=== PATIENT | female | born 1990 | race African-American/Black ===

== ENCOUNTER 2016-04-24 17:47 | Emergency (ER) | payer SELFPAY ==
--- NOTE | 2016-04-24 18:05 | ED Physician Documentation ---
General Adult - HISTORIAN Historian: patient - HPI Stated Complaint: abd pain, n/v/d Chief Complaint: General Adult Onset: days ago (1) Timing: still present Severity: moderate Further Comments: yes (Pt is a 25 yo female with n/v/d x 1 day. Pt had >10 episodes vomiting today. No fever. No blood with water bm's. No fever.) - ROS CONST: other (malaise) EYES/ENT: none CVS/RESP: none GI/: vomiting, nausea, diarrhea MS/SKIN/LYMPH: none - PAST HX Past History: none - SOCIAL HX Smoking History: non-smoker - FAMILY HX Family History: No - VITAL SIGNS Vital Signs: Vital Signs Temp Pulse Resp BP Pulse Ox 98.0 F 83 18 122/64 99 04/24/16 17:56 04/24/16 17:56 04/24/16 17:56 04/24/16 17:56 04/24/16 17:56 - REVIEWED ASSESSMENTS Nursing Assessment Reviewed: Yes Vitals Reviewed: Yes <Nikos Roy - Last Filed: 04/24/16 19:07> - VITAL SIGNS Vital Signs: Vital Signs Temp Pulse Resp BP Pulse Ox 98.0 F 83 18 122/64 99 04/24/16 17:56 04/24/16 17:56 04/24/16 17:56 04/24/16 17:56 04/24/16 17:56 <BRENDA CHARLES - Last Filed: 04/24/16 19:59> - PAST HX Allergies/Adverse Reactions: Allergies Allergy/AdvReac Type Severity Reaction Status Date / Time No Known Allergies Allergy Verified 04/24/16 18:02 Home Medications: Ambulatory Orders Medication Instructions Recorded NK [NK] 04/24/16 Progress - Progress Progress: NS 1 L IVF Zofran 4 mg IV Care transferred to Brenda Charles at 1900. <Nikos Roy - Last Filed: 04/24/16 19:07> ED Results Lab/Radiology - Lab Results Lab Results: Lab Results 04/24/16 04/24/16 18:30 18:30 WBC 4.60 K/ul K/ul (4.00-12.00) RBC 5.57 M/ul H M/ul (3.90-5.20) Hgb 12.6 g/dL g/dL (12.0-16.0) Hct 40.6 % % (34.5-46.5) MCV 73.0 fl L fl (80.0-100.0) MCH 22.5 pg L pg (28.0-34.0) MCHC 30.9 g/dL g/dL (30.0-36.0) RDW 14.1 % % (11.3-14.3) Plt Count 239 K/mm3 K/mm3 (130-400) Neut % (Auto) 82.6 % H % (39.0-79.0) Lymph % (Auto) 11.1 % L % (16.0-50.0) Power % (Auto) 2.7 % % (0.0-11.0) Eos % (Auto) 2.3 % % (0.0-6.8) Baso % (Auto) 0.2 (0.0-1.5) Neut # 3.8 # k/uL # k/uL (1.4-7.7) Lymph # 0.5 # k/uL L # k/uL (0.6-4.0) Power # 0.1 # k/uL # k/uL (0.0-0.9) Eos # 0.1 # k/uL # k/uL (0.0-0.6) Baso # 0.0 # k/uL # k/uL (0.0-0.5) Reactive Lymphs % 1.2 % % (0.0-5.0) Reactive Lymphs # 0.0 # k/uL # k/uL (0.0-0.8) Sodium 138 mmol/L mmol/L (136-145) Potassium 3.3 mmol/L L mmol/L (3.5-5.0) Chloride 101 mmol/L mmol/L (98-110) Carbon Dioxide 33 mmol/L H mmol/L (20-32) BUN 14 mg/dL mg/dL (10-26) Creatinine 0.6 mg/dL mg/dL (0.4-1.5) Estimated Creat Clear 121 Est GFR ( Amer) > 60 (60 - ) Est GFR (Non-Af Amer) > 60 (60 - ) Glucose 97 mg/dL mg/dL (70-99) Calcium 9.7 mg/dL mg/dL (8.5-10.5) Total Bilirubin 0.7 mg/dL mg/dL (0.2-1.2) AST 24 U/L U/L (0-41) ALT 13 U/L U/L (0-45) Alkaline Phosphatase 61 U/L U/L (46-116) Total Protein 8.0 g/dL g/dL (6.0-8.5) Albumin 4.7 g/dL g/dL (3.0-5.5) - Orders Orders: ED Orders Category Date Time Status CBC/PLATELET/DIFF Routine Lab 04/24/16 18:30 Completed CMP Routine Lab 04/24/16 18:30 Completed UA [URINALYSIS] Routine Lab 04/24/16 Ordered 0.9 % Sodium Chloride [Normal Saline] 1,000 ml Med 04/24/16 18:09 Discontinued IV Q1H 0.9 % Sodium Chloride [Normal Saline] 1,000 ml Med 04/24/16 19:12 Active IV Q1H Ketorolac Tromethamine [Toradol] Med 04/24/16 19:12 Discontinued 30 mg .ROUTE .STK-MED ONE Ketorolac Tromethamine [Toradol] Med 04/24/16 19:11 Discontinued 30 mg IVP NOW ONE Ondansetron HCl/Pf [Zofran 4 mg/2 ml] Med 04/24/16 18:08 Discontinued 4 mg IVP NOW ONE EKG WITH COMPARISON Stat Ther 04/24/16 Ordered <BRENDA CHARLES - Last Filed: 04/24/16 19:59> General Adult Physical Exam - PHYSICAL EXAM GENERAL APPEARANCE: mild distress EENT: eye inspection normal, pharynx normal NECK: normal inspection, supple RESPIRATORY: no resp distress, chest non-tender, breath sounds normal CVS: heart sounds normal, other (irregular c/w PVC's.) ABDOMEN: soft, no organomegaly, tenderness (mild-moderate diffuse abd tenderness ), decreased BS BACK: normal inspection, no CVA tenderness SKIN: warm/dry, normal color EXTREMITIES: non-tender, normal range of motion, no evidence of injury NEURO: oriented X3, motor nml, sensation nml <Nikos Roy - Last Filed: 04/24/16 19:07> Discharge <Nikos Roy - Last Filed: 04/24/16 19:07> Decision to Admit: NO Decision Time: 19:57 <BRENDA CHARLES - Last Filed: 04/24/16 19:59> Clincal Impression: Nausea and vomiting Additional Instructions: Advance your diet very slowly. If you vomit, wait an hour before you try sips of liquids. Return to the ER if you are unable to urinate for 10-12 hours. Home Medications: Ambulatory Orders NK [NK] 04/24/16 Condition: Good Disposition: 01 HOME, SELF-CARE
[2016-04-24] MEDS ORDERED: ONDANSETRON HCL/PF 4 MG/ 2ML VIAL IVP ONE (18:08)
[2016-04-24] MEDS ORDERED: 0.9 % SODIUM CHLORIDE 1,000 ML IV ONE ×2 (18:09→19:12)
[2016-04-24 18:37] LABS: BASOPHILS % 0.2 (0.0-1.5); EOSINOPHILS % 2.3 % (0.0-6.8); LYMPHOCYTES # 0.5 # k/uL (0.6-4.0); MEAN CORPUSCULAR HEMOGLOBIN 22.5 pg (28.0-34.0); MONOCYTES # 0.1 # k/uL (0.0-0.9); MONOCYTES % 2.7 % (0.0-11.0); NEUTROPHILS # 3.8 # k/uL (1.4-7.7)
[2016-04-24 18:54] LABS: eGFR (African) > 60; eGFR (Non-African) > 60
[2016-04-24] MEDS ORDERED: KETOROLAC TROMETHAMINE 30 MG/1ML VIAL IVP ONE (19:11)
[2016-04-24] MEDS ORDERED: KETOROLAC TROMETHAMINE 30 MG/1ML VIAL ONE (19:12)
[2016-04-24] MEDS ORDERED: ONDANSETRON HCL 4 MG TAB.RAPDIS PO ONE (20:00)
[2016-04-24 20:44] VITALS: BP 120/61
== END 2016-04-24 20:17 | disposition home or self-care (01) ==
LOC: ED 17:47
DX: R11.2 Nausea with vomiting, unspecified (principal)
CPT/HCPCS: 80053; 85025; J1885; J2405; J7030; 96374; 96375; 99283; 99284; S1016

== ENCOUNTER 2017-09-05 00:55 | Emergency (ER) | payer SELFPAY ==
[2017-09-05] MEDS: KETOROLAC TROMETHAMINE 60 MG/2 ML VIAL IM ONE (01:15)
[2017-09-05 01:36] LABS: BASOPHILS % 0.3 (0.0-1.5); EOSINOPHILS % 2.3 % (0.0-6.8); MEAN CORPUSCULAR HEMOGLOBIN 21.9 pg (28.0-34.0); MEAN CORPUSCULAR VOLUME 72.7 fl (80.0-100.0); MONOCYTES % 3.2 % (0.0-11.0); NEUTROPHILS # 1.5 # k/uL (1.4-7.7)
[2017-09-05 01:47] LABS: eGFR (African) > 60; eGFR (Non-African) > 60
--- NOTE | 2017-09-05 01:56 | ED Physician Documentation ---
General Adult - HPI Stated Complaint: L jaw pain Chief Complaint: General Adult Onset: days ago (1) Timing: still present Severity: moderate Further Comments: yes (Pt is a 27 yo female who fell yesterday and struck the L side of her face on a clothes dryer. Pt was lightheaded when she fell. Pt c/o jaw pain, although she has FROM in her jaw. Jaw has been sore in the area of TMJ.) - ROS CONST: other (lightheaded yesterday) EYES/ENT: other (sore jaw s/p fall) CVS/RESP: none GI/: none MS/SKIN/LYMPH: other (jaw soreness) - PAST HX Past History: none Allergies/Adverse Reactions: Allergies Allergy/AdvReac Type Severity Reaction Status Date / Time No Known Allergies Allergy Verified 09/05/17 01:15 Home Medications: Ambulatory Orders Medication Instructions Recorded NK [NK] 04/24/16 - SOCIAL HX Smoking History: non-smoker - FAMILY HX Family History: No - VITAL SIGNS Vital Signs: Vital Signs Temp Pulse Resp BP Pulse Ox 98.2 F 67 16 103/63 98 09/05/17 00:55 09/05/17 00:55 09/05/17 00:55 09/05/17 00:55 09/05/17 00:55 - REVIEWED ASSESSMENTS Nursing Assessment Reviewed: Yes Vitals Reviewed: Yes Progress - Progress Progress: Toradol 60 mg IM improved Rx Keflex 500 mg po tid x 5 days, 1st dose in ER for possible early lip abscess. establish with pcp and f/u re: microcytic anemia (handout given). ED Results Lab/Radiology - Lab Results Lab Results: Lab Results 09/05/17 09/05/17 01:32 01:32 WBC 4.00 K/ul K/ul (4.00-12.00) RBC 4.95 M/ul M/ul (3.90-5.20) Hgb 10.9 g/dL L g/dL (12.0-16.0) Hct 36.0 % % (34.5-46.5) MCV 72.7 fl L fl (80.0-100.0) MCH 21.9 pg L pg (28.0-34.0) MCHC 30.2 g/dL g/dL (30.0-36.0) RDW 14.2 % % (11.3-14.3) Plt Count 194 K/mm3 K/mm3 (130-400) Neut % (Auto) 37.6 % L % (39.0-79.0) Lymph % (Auto) 55.0 % H % (16.0-50.0) [place] % (Auto) 3.2 % % (0.0-11.0) Eos % (Auto) 2.3 % % (0.0-6.8) Baso % (Auto) 0.3 (0.0-1.5) Neut # (Auto) 1.5 # k/uL # k/uL (1.4-7.7) Lymph # (Auto) 2.2 # k/uL # k/uL (0.6-4.0) [place] # (Auto) 0.1 # k/uL # k/uL (0.0-0.9) Eos # (Auto) 0.1 # k/uL # k/uL (0.0-0.6) Baso # (Auto) 0.0 # k/uL # k/uL (0.0-0.5) Reactive Lymphs % 1.6 % % (0.0-5.0) Reactive Lymphs # 0.1 # k/uL # k/uL (0.0-0.8) Sodium 138 mmol/L mmol/L (136-145) Potassium 3.3 mmol/L L mmol/L (3.5-5.1) Chloride 106 mmol/L mmol/L (98-107) Carbon Dioxide 26 mmol/L mmol/L (22-30) BUN 11 mg/dL mg/dL (7-17) Creatinine 0.60 mg/dL mg/dL (0.52-1.04) Estimated Creat Clear 113 Est GFR ( Amer) > 60 (60 - ) Est GFR (Non-Af Amer) > 60 (60 - ) Glucose 95 mg/dL mg/dL (74-106) Calcium 8.4 mg/dL mg/dL (8.4-10.2) Total Bilirubin < 0.1 mg/dL L mg/dL (0.2-1.3) AST 15 U/L U/L (15-46) ALT 15 U/L U/L (13-69) Alkaline Phosphatase 44 U/L U/L (38-126) Total Protein 6.6 g/dL g/dL (6.3-8.2) Albumin 3.7 g/dL g/dL (3.5-5.0) - Orders Orders: ED Orders Category Date Time Status CBC/PLATELET/DIFF Routine Lab 09/05/17 01:32 Completed CMP Routine Lab 09/05/17 01:32 Completed UA [URINALYSIS] Routine Lab 09/05/17 Ordered Ketorolac Tromethamine [Toradol] Med 09/05/17 01:13 Discontinued 60 mg IM NOW ONE General Adult Physical Exam - PHYSICAL EXAM GENERAL APPEARANCE: mild distress EENT: pharynx normal, other (TMJ with FROM; good dentition; small abrasion inside lower lip, possible early abscess formation) NECK: normal inspection, supple RESPIRATORY: no resp distress, chest non-tender, breath sounds normal CVS: reg rate & rhythm, heart sounds normal BACK: normal inspection, no CVA tenderness SKIN: warm/dry, normal color EXTREMITIES: non-tender, normal range of motion, no edema NEURO: oriented X3, CN's nml as tested, motor nml, sensation nml Discharge Clincal Impression: musculoskeletal jaw pain, microcytic anemia, possible early lip abscess Referrals: Primary Doctor,No [Primary Care Provider] - Condition: Good Disposition: 01 HOME, SELF-CARE Decision to Admit: NO Decision Time: 02:20
[2017-09-05] MEDS: CEPHALEXIN 250 MG CAPSULE PO ONE (02:19)
[2017-09-05 03:04] VITALS: BP 105/64
[2017-09-05 08:44] LABS: APPEARANCE,URINE CLEAR (CLEAR); COLOR,URINE YELLOW (YELLOW); OCCULT BLOOD,URINE 2+ (NEGATIVE); PH URINE 6.5 (5.0 - 8.0); UROBILINOGEN URINE 0.2 Eu (0.2-1.0)
== END 2017-09-05 02:42 | disposition home or self-care (01) ==
LOC: ED 00:55
DX: R68.84 Jaw pain (principal); D50.9 Iron deficiency anemia, unspecified
CPT/HCPCS: 80053; 81002; 85025; J1885; 96372; 99284

== ENCOUNTER 2018-05-01 10:45 | Emergency (ER) | payer OTHER ==
[2018-05-01] MEDS ORDERED: ONDANSETRON HCL/PF 4 MG/ 2ML VIAL IVP ONE (11:09)
[2018-05-01] MEDS ORDERED: 0.9 % SODIUM CHLORIDE 1,000 ML IV ONE (11:22)
[2018-05-01 11:27] LABS: BASOPHILS % 0.2 (0.0-1.5); EOSINOPHILS % 1.4 % (0.0-6.8); MEAN CORPUSCULAR HEMOGLOBIN 21.9 pg (28.0-34.0); MONOCYTES % 6.3 % (0.0-11.0); NEUTROPHILS # 1.7 # k/uL (1.4-7.7)
--- NOTE | 2018-05-01 11:31 | ED Physician Documentation ---
Abdominal Pain - HISTORIAN Historian: patient - HPI Stated Complaint: abd pain/n/v Chief Complaint: Abdominal Pain Additonal Information: Patient presents to ED with a 3 day history of nausea/vomiting/diarrhea and cramping abdominal pain. She reports sick contacts with similar symptoms. Denies fever. Onset: days ago (3) Duration: waxing, waning Timing: still present Context: denies: out of country travel, bad food Severity: moderate Quality: aching, cramping Associated Symptoms: nausea, vomiting, diarrhea. denies: fever, chills Exacerbated by: food Relieved by: supine, remaining still - ROS CONST: no problems GI/: dark urine. denies: constipation, black stools, bloody stools CVS/RESP: denies: shortness of breath EYES/ENT: denies: problems with vision MS/SKIN/LYMPH: denies: rash NEURO/PSYCH: denies: headache, dizziness - SOCIAL HX Smoking History: non-smoker Alcohol Use: none Drug Use: none - FAMILY HX Family History: none - PAST HX Past History: none Ischemic Bowel Risk Factors: none Other History: none Surgeries/Procedures: none Home Medications: Ambulatory Orders Medication Instructions Recorded Ondansetron HCl Rapdis [Zofran Odt] 4 mg PO Q8 PRN #30 tab 05/01/18 Allergies/Adverse Reactions: Allergies Allergy/AdvReac Type Severity Reaction Status Date / Time No Known Allergies Allergy Verified 05/01/18 11:01 - VITAL SIGNS Vital Signs: Vital Signs Temp Pulse Resp BP Pulse Ox 97.3 F L 72 16 110/64 100 05/01/18 10:56 05/01/18 10:56 05/01/18 10:56 05/01/18 10:56 05/01/18 10:56 - REVIEWED ASSESSMENTS Nursing Assessment Reviewed: Yes Vitals Reviewed: Yes ED Results Lab/Radiology - Lab Results Lab Results: Lab Results 05/01/18 05/01/18 Unknown Unknown WBC 2.90 K/ul L K/ul (4.00-12.00) RBC 5.74 M/ul H M/ul (3.90-5.20) Hgb 12.6 g/dL g/dL (12.0-16.0) Hct 39.7 % % (34.5-46.5) MCV 69.0 fl L fl (80.0-100.0) MCH 21.9 pg L pg (28.0-34.0) MCHC 31.6 g/dL g/dL (30.0-36.0) RDW 18.0 % H % (11.3-14.3) Plt Count 241 K/mm3 K/mm3 (130-400) Neut % (Auto) 56.9 % % (39.0-79.0) Lymph % (Auto) 35.2 % % (16.0-50.0) [place] % (Auto) 6.3 % % (0.0-11.0) Eos % (Auto) 1.4 % % (0.0-6.8) Baso % (Auto) 0.2 (0.0-1.5) Neut # (Auto) 1.7 # k/uL # k/uL (1.4-7.7) Lymph # (Auto) 1.0 # k/uL # k/uL (0.6-4.0) [place] # (Auto) 0.2 # k/uL # k/uL (0.0-0.9) Eos # (Auto) 0.0 # k/uL # k/uL (0.0-0.6) Baso # (Auto) 0.0 # k/uL # k/uL (0.0-0.5) Sodium 140 mmol/L mmol/L (136-145) Potassium 3.9 mmol/L mmol/L (3.5-5.1) Chloride 104 mmol/L mmol/L (98-107) Carbon Dioxide 25 mmol/L mmol/L (22-30) BUN 11 mg/dL mg/dL (7-17) Creatinine 0.60 mg/dL mg/dL (0.52-1.04) Estimated Creat Clear 113 Est GFR ( Amer) > 60 (60 - ) Est GFR (Non-Af Amer) > 60 (60 - ) Glucose 84 mg/dL mg/dL (74-106) Calcium 8.9 mg/dL mg/dL (8.4-10.2) Total Bilirubin 0.7 mg/dL mg/dL (0.2-1.3) AST 30 U/L U/L (15-46) ALT 21 U/L U/L (13-69) Alkaline Phosphatase 56 U/L U/L (38-126) Total Protein 8.1 g/dL g/dL (6.3-8.2) Albumin 4.9 g/dL g/dL (3.5-5.0) - Orders Orders: ED Orders Category Date Time Status Place IV Lock 1T Care 05/01/18 11:09 Active CBC/PLATELET/DIFF Routine Lab 05/01/18 Completed CMP Routine Lab 05/01/18 Completed 0.9 % Sodium Chloride [Normal Saline] 1,000 ml Med 05/01/18 11:22 Discontinued IV Q1H Ketorolac Tromethamine [Toradol] Med 05/01/18 12:17 Discontinued 30 mg IVP NOW ONE Ondansetron HCl/Pf [Zofran] Med 05/01/18 11:09 Discontinued 4 mg IVP NOW ONE Abdominal Pain Physical Exam - Physical Exam General Appearance: no acute distress, alert EENT: [place] NECK: supple RESPIRATORY: no resp distress, chest non-tender, breath sounds normal CVS: reg rate & rhythm, heart sounds normal ABDOMEN: soft, normal bowel sounds, no distension, tenderness (periumbilical) BACK: no CVA tenderness SKIN: warm/dry, normal color EXTREMITIES: non-tender NEURO: oriented X3, motor nml Vital Signs: Vital Signs Temp Pulse Resp BP Pulse Ox 97.3 F L 72 16 110/64 100 05/01/18 10:56 05/01/18 10:56 05/01/18 10:56 05/01/18 10:56 05/01/18 10:56 Discharge Clincal Impression: Viral gastroenteritis Prescriptions: Ondansetron HCl Rapdis [Zofran Odt] 4 mg PO Q8 PRN #30 tab PRN Reason: nausea/vomiting Referrals: Primary Doctor,No [Primary Care Provider] - 2 Days Additional Instructions: 1. Tylenol and/or Ibuprofen as needed for pain 2. Drink plenty of fluids to maintain proper hydration 3. Zofran as needed for nausea/vomiting. Rx sent to [facility] 4. Return to ER for new or worsening symptoms. Condition: Stable Disposition: 01 HOME, SELF-CARE Decision to Admit: NO Date of Decison to Admit: 05/01/18 Decision Time: 12:27
[2018-05-01 12:03] LABS: eGFR (Non-African) > 60
[2018-05-01] MEDS ORDERED: KETOROLAC TROMETHAMINE 30 MG/1ML VIAL IVP ONE (12:17)
[2018-05-01 12:58] VITALS: BP 108/76
[2018-05-01 15:56] LABS: APPEARANCE,URINE CLEAR (CLEAR); COLOR,URINE BROWN (YELLOW); OCCULT BLOOD,URINE NEGATIVE (NEGATIVE); PH URINE 5.5 (5.0 - 8.0); UROBILINOGEN URINE 0.2 Eu (0.2-1.0)
== END 2018-05-01 12:55 | disposition home or self-care (01) ==
LOC: ED 10:45
DX: A08.4 Viral intestinal infection, unspecified (principal)
CPT/HCPCS: 36415; 80053; 81002; 85025; 96374; 96375; 99283; 99284; J1885; J2405; J7030; S1016

== ENCOUNTER 2018-08-30 08:46 | Outpatient (CLI) | payer OTHER ==
--- NOTE | 2018-10-03 08:32 | Diagnostic Imaging Report ---
DHRUV BERG [facility] [address] [place], [place]. [address] Report Submission Date: Aug 30, 2018 10:00:20 AM CDT Patient Study Name: CLEMENCIA DUMAS Date: Aug 30, 2018 9:18:44 AM CDT Modality Type: CT\SR Gender: F Description: ABDOMEN/PELVIS W/CON : 89 Institution: [facility] Physician: DHRUV BERG Exam: CT abdomen and pelvis with contrast. History: Abdominal pain. Axial images through the abdomen and pelvis after IV infusion of 90 cc Omnipaque is submitted along with sagittal and coronal reformatted images. The visualized lower lung gross are clear. No free intraperitoneal air is identified. The gallbladder is distended without stones. The liver, spleen and pancreas are normal attenuation and enhancement without space-occupying lesion. The adrenal glands are normal configuration. The abdominal aorta is of normal caliber. No significant periaortic lymphadenopathy is noted. Both kidneys are normal attenuation and enhancement without hydronephrosis or hydroureter identified. The urinary bladder is distended without intrinsic filling defect. The uterus is deviated to the right of midline. Fluid within the endometrial canal is noted. A rounded cystic structure measuring 1.9 cm in the right adnexa is noted suggestive of an ovarian cyst. A small amount of free cul-de-sac fluid is identified. The small bowel is of normal caliber. Air and stool seen throughout the large intestine. No carla inflammatory changes to the mesentery is identified. No bony abnormalities are identified. Impression: No hydronephrosis or hydroureter is identified. The uterus is deviated to the right of midline. Fluid within the endometrial canal is noted. Possible right ovarian cyst measuring 2 cm in greatest diameter is noted. A small amount of free cul-de-sac fluid is identified. Nonspecific bowel gas pattern. Electronically signed on Aug 30, 2018 10:00:20 AM CDT by: Lyndon POTTER
== END 2018-08-30 08:51 | disposition home or self-care (01) ==
LOC: RAD 08:46
PROVIDERS: ATTEND Family Medicine
DX: R10.9 Unspecified abdominal pain (principal); R63.4 Abnormal weight loss
CPT/HCPCS: 74177; Q9967